=== PATIENT | male | born 1970 | race Caucasian/White ===

== ENCOUNTER 2021-12-03 21:14 | Inpatient (IN) | payer BC ==
[~2021-12-03] VITALS: Ht 188 cm; Wt 69.9 kg
[2021-12-03] MEDS ORDERED: MORPHINE SULFATE 4 MG/ML CPJ (NOT FOR IM USE) IV ONE (21:45)
[2021-12-03] MEDS ORDERED: ASPIRIN 81MG TABLET PO ONE (21:45)
[2021-12-03 22:16] LABS: BASOPHILS % 0.2 % (0.0-2.0); EOSINOPHILS % 0.2 % (0.0-5.0); HEMATOCRIT. 27.6 % (42.0-52.0); HEMOGLOBIN. 8.8 g/dL (14.0-18.0); LYMPHOCYTES % 10.4 % (20.0-50.0); MEAN CORPUSCULAR HEMOGLOBIN 26.2 pg (28.0-32.0); MEAN CORPUSCULAR VOLUME 82.2 fL (80.0-94.0); MEAN PLATELET VOLUME 6.7 fl (7.4-10.4); MONOCYTES % 8.3 % (2.0-8.0); NEUTROPHILS % 80.9 % (40.0-76.0); PLATELET 337 x1000/uL (130-400); RED BLOOD CELL COUNT 3.36 mill/uL (4.7-6.1); RED CELL DISTRIBUTION WIDTH 20.5 % (11.6-14.6)
[2021-12-03 22:20] LABS: CHLORIDE 98 mEq/L (98-107)
[2021-12-03] MEDS ORDERED: PIPERACILLIN/TAZOBACTAM 3.375GM/50ML PREMIX IV NR (22:30)
[2021-12-03] MEDS ORDERED: AZITHROMYCIN 500 MG in DEXT 5% WATER 250 ML IV SCH (22:30)
[2021-12-03] MEDS ORDERED: VANCOMYCIN 1G PREMIX 200 ML IV SCH (22:30)
[2021-12-03 22:33] LABS: CLARITY URINE CLEAR (CLEAR); COLOR URINE YELLOW (YELLOW); KETONES URINE NEGATIVE (NEGATIVE); LEUKOCYTE ESTERASE URINE NEGATIVE (NEGATIVE); NITRITE URINE NEGATIVE (NEGATIVE); OCCULT BLOOD URINE 1+ (NEGATIVE); PH URINE 6.5 (4.5-8.0); PROTEIN URINE TRACE (NEGATIVE); SPECIFIC GRAVITY URINE 1.021 (1.005-1.030); UROBILINOGEN URINE 0.2 E.U./dL (0.2-1.0)
[2021-12-04] VITALS (7 sets, daily range): BP systolic 87–115; BP diastolic 35–70
[2021-12-04] MEDS ORDERED: SODIUM CHLORIDE 0.9% 1000ML BAG (SEPSIS BOLUS) IV ONE
[2021-12-04] MEDS ORDERED: MORPHINE SULFATE 4 MG/ML CPJ (NOT FOR IM USE) IV ONE (02:45)
[2021-12-04] MEDS ORDERED: FUROSEMIDE 100MG/10ML VIAL IVP NR (03:15)
[2021-12-04] MEDS ORDERED: DIPHENHYDRAMINE 50MG/ML VIAL IV PRN (09:45)
[2021-12-04] MEDS ORDERED: ONDANSETRON HCL 4MG/2ML INJ IV PRN (09:45)
[2021-12-04] MEDS ORDERED: IPRATROPIUM/ALBUTEROL 0.5-3(2.5)MG/3ML NEB HHN PRN (09:45)
[2021-12-04] MEDS ORDERED: CLONIDINE 0.1MG TABLET PO PRN (09:45)
[2021-12-04] MEDS ORDERED: ACETAMINOPHEN 325MG TABLET PO PRN (09:45)
[2021-12-04] MEDS ORDERED: NALOXONE HCL 0.4MG/ML VIAL IV PRN (09:45)
[2021-12-04 09:58] LABS: BG BASE EXCESS 1.6 mmol/L (-2.0-2.0); BG CARBOXYHEMOGLOBIN 0.3 % (0.5-1.5); BG DEOXYHEMOGLOBIN 2.7 % (0.0-5.0); BG FRACTION INSPIRED OXYGEN 70; BG HCO3 ACT 24.7 mmol/L (22.0-26.0); BG METHEMOGLOBIN 0.4 % (0.0-1.5); BG OXYGEN SATURATION 97.3 % (92.0-98.5); BG OXYHEMOGLOBIN 96.6 % (94.0-97.0); BG PCO2 32.8 mmHg (35.0-45.0); BG PH 7.495 (7.350-7.450); BG PO2 97.7 mmHg (75.0-100.0); BG SAMPLE SITE RIGHT RADIAL; BG TOTAL HEMOGLOBIN 8.7 g/dL (12.0-18.0); BG VENT MODE MASK - BIPAP
[2021-12-04] MEDS ORDERED: CEFTRIAXONE 1 G PREMIX 50 ML IV NR (10:00)
[2021-12-04] MEDS: MORPHINE SULFATE 2 MG/ML CPJ (NOT FOR IM USE) IV PRN ×3 (11:35→23:01)
[2021-12-04] MEDS ORDERED: AZITHROMYCIN 500 MG in DEXT 5% WATER 250 ML IV SCH (15:30)
[2021-12-04 17:04] LABS: BG BASE EXCESS 1.8 mmol/L (-2.0-2.0); BG CARBOXYHEMOGLOBIN 0.3 % (0.5-1.5); BG DEOXYHEMOGLOBIN 1.2 % (0.0-5.0); BG FRACTION INSPIRED OXYGEN 70; BG HCO3 ACT 25.6 mmol/L (22.0-26.0); BG METHEMOGLOBIN 0.3 % (0.0-1.5); BG OXYGEN SATURATION 98.8 % (92.0-98.5); BG OXYHEMOGLOBIN 98.2 % (94.0-97.0); BG PCO2 36.7 mmHg (35.0-45.0); BG PH 7.462 (7.350-7.450); BG PO2 145.2 mmHg (75.0-100.0); BG SAMPLE SITE RIGHT RADIAL; BG TOTAL HEMOGLOBIN 8.3 g/dL (12.0-18.0); BG VENT MODE MASK - BIPAP
[2021-12-04] MEDS ORDERED: APIX2.5T PO (19:19)
[2021-12-04] MEDS ORDERED: TERA1CAP54 PO (19:19)
[2021-12-04] MEDS ORDERED: PRED10TA (19:19)
[2021-12-04] MEDS ORDERED: GABA-532 PO (19:19)
[2021-12-04] MEDS ORDERED: LEVO50TA8 PO (19:19)
[2021-12-04] MEDS ORDERED: METH-773 PO (19:19)
[2021-12-04] MEDS ORDERED: LOVA20TA2 PO (19:19)
[2021-12-04] MEDS ORDERED: HYDR-4009 PO (19:19)
[2021-12-04] MEDS ORDERED: AMLO5TAB88 PO (19:19)
[2021-12-04] MEDS ORDERED: MSCON15 PO (19:19)
[2021-12-04] MEDS ORDERED: IPRA3AMP9 NEB (19:19)
[2021-12-04] MEDS: ALBUTEROL (0.083%) 2.5MG/3ML NEB HHN SCH (20:23)
[2021-12-04] MEDS: AZITHROMYCIN 500 MG in DEXT 5% WATER 250 ML IV SCH (20:57)
[2021-12-05] VITALS (12 sets, daily range): BP systolic 88–108; BP diastolic 50–69
[2021-12-05] MEDS: ALBUTEROL (0.083%) 2.5MG/3ML NEB HHN SCH ×4 (01:05→20:51)
[2021-12-05] MEDS: HYDROCODONE/ACETAMINOPHEN 5/325MG TABLET PO PRN ×4 (01:43→20:58)
[2021-12-05 07:13] LABS: HEMATOCRIT. 22.1 % (42.0-52.0); HEMOGLOBIN. 7.4 g/dL (14.0-18.0); MEAN CORPUSCULAR HEMOGLOBIN 27.3 pg (28.0-32.0); MEAN CORPUSCULAR VOLUME 81.9 fL (80.0-94.0); MEAN PLATELET VOLUME 6.9 fl (7.4-10.4); PLATELET 293 x1000/uL (130-400); RED CELL DISTRIBUTION WIDTH 20.6 % (11.6-14.6)
[2021-12-05 07:21] LABS: CHLORIDE 98 mEq/L (98-107)
[2021-12-05] MEDS ORDERED: BISACODYL 10MG SUPP PR NR (08:15)
[2021-12-05] MEDS ORDERED: CEFTRIAXONE 1,000 MG in DEXTROSE 5% WATER 50 ML IV SCH ×2 (09:00→16:00)
[2021-12-05] MEDS ORDERED: FUROSEMIDE 40MG/4ML VIAL IV SCH (09:00)
[2021-12-05] MEDS: PANTOPRAZOLE 40MG DR TABLET PO SCH (10:18)
[2021-12-05] MEDS: LEVOTHYROXINE SODIUM 50MCG TABLET PO SCH (10:18)
[2021-12-05] MEDS: PREDNISONE 10MG TABLET PO SCH (13:50)
[2021-12-05] MEDS: METHOCARBAMOL 500MG TABLET PO PRN (13:50)
[2021-12-05] MEDS: GABAPENTIN 300MG CAPSULE PO SCH ×2 (13:50→18:03)
[2021-12-05] MEDS: TERAZOSIN HCL 1MG CAPSULE PO SCH (13:50)
[2021-12-05] MEDS: MORPHINE SULFATE 2 MG/ML CPJ (NOT FOR IM USE) IV PRN (16:18)
[2021-12-05] MEDS ORDERED: TERA1CAP53 PO (20:32)
[2021-12-05] MEDS ORDERED: AMLO5TAB88 PO (20:51)
[2021-12-05] MEDS ORDERED: LEVO50TA PO (20:51)
[2021-12-05] MEDS: AZITHROMYCIN 500 MG in DEXT 5% WATER 250 ML IV SCH (21:09)
[2021-12-05] MEDS: ATORVASTATIN CALCIUM 40MG TABLET PO SCH (21:09)
[2021-12-06] VITALS (12 sets, daily range): BP systolic 89–113; BP diastolic 44–59
[2021-12-06] MEDS: ALBUTEROL (0.083%) 2.5MG/3ML NEB HHN SCH ×4 (00:51→19:57)
[2021-12-06] MEDS: MORPHINE SULFATE 2 MG/ML CPJ (NOT FOR IM USE) IV PRN ×2 (02:55→13:04)
[2021-12-06 06:03] LABS: CHLORIDE 100 mEq/L (98-107)
[2021-12-06 06:20] LABS: HEMATOCRIT. 22.2 % (42.0-52.0); HEMOGLOBIN. 7.3 g/dL (14.0-18.0); MEAN CORPUSCULAR HEMOGLOBIN 26.8 pg (28.0-32.0); MEAN CORPUSCULAR VOLUME 81.4 fL (80.0-94.0); MEAN PLATELET VOLUME 7.2 fl (7.4-10.4); PLATELET 319 x1000/uL (130-400); RED BLOOD CELL COUNT 2.72 mill/uL (4.7-6.1); RED CELL DISTRIBUTION WIDTH 20.5 % (11.6-14.6)
[2021-12-06] MEDS: HYDROCODONE/ACETAMINOPHEN 5/325MG TABLET PO PRN ×3 (07:51→20:50)
[2021-12-06 08:51] LABS: BG BASE EXCESS 0.3 mmol/L (-2.0-2.0); BG CARBOXYHEMOGLOBIN 0.3 % (0.5-1.5); BG DEOXYHEMOGLOBIN 5.4 % (0.0-5.0); BG FRACTION INSPIRED OXYGEN 70; BG HCO3 ACT 23.5 mmol/L (22.0-26.0); BG METHEMOGLOBIN 0.2 % (0.0-1.5); BG OXYGEN SATURATION 94.6 % (92.0-98.5); BG OXYHEMOGLOBIN 94.1 % (94.0-97.0); BG PCO2 31.5 mmHg (35.0-45.0); BG PO2 73.6 mmHg (75.0-100.0); BG SAMPLE SITE RIGHT RADIAL; BG TOTAL HEMOGLOBIN 7.7 g/dL (12.0-18.0); BG VENT MODE HIGH FLOW
[2021-12-06] MEDS: TERAZOSIN HCL 1MG CAPSULE PO SCH (09:00)
[2021-12-06] MEDS: LEVOTHYROXINE SODIUM 50MCG TABLET PO SCH (09:16)
[2021-12-06] MEDS: PANTOPRAZOLE 40MG DR TABLET PO SCH (09:16)
[2021-12-06] MEDS: GABAPENTIN 300MG CAPSULE PO SCH ×3 (09:16→17:47)
[2021-12-06] MEDS: PREDNISONE 10MG TABLET PO SCH (09:27)
[2021-12-06 13:53] LABS: PLATELET ESTIMATE NORMAL
[2021-12-06] MEDS: CEFTRIAXONE 1,000 MG in DEXTROSE 5% WATER 50 ML IV SCH (14:15)
[2021-12-06 19:48] LABS: PLATELET ESTIMATE NORMAL
[2021-12-06] MEDS: AZITHROMYCIN 500 MG in DEXT 5% WATER 250 ML IV SCH (20:41)
[2021-12-06] MEDS: ATORVASTATIN CALCIUM 40MG TABLET PO SCH (20:41)
[2021-12-07] VITALS: BP 108/52
[2021-12-07 02:00] VITALS: BP 112/62
[2021-12-07] MEDS: ALBUTEROL (0.083%) 2.5MG/3ML NEB HHN SCH ×3 (02:08→15:22)
[2021-12-07] MEDS ORDERED: LORAZEPAM 0.5MG TABLET PO PRN (03:15)
[2021-12-07] MEDS ORDERED: ZOLPIDEM TARTRATE 5MG TABLET PO PRN (03:15)
[2021-12-07 04:54] LABS: HEMATOCRIT. 22.8 % (42.0-52.0); HEMOGLOBIN. 7.3 g/dL (14.0-18.0); MEAN CORPUSCULAR HEMOGLOBIN 25.9 pg (28.0-32.0); MEAN CORPUSCULAR VOLUME 81.2 fL (80.0-94.0); MEAN PLATELET VOLUME 7.1 fl (7.4-10.4); PLATELET 358 x1000/uL (130-400); RED BLOOD CELL COUNT 2.81 mill/uL (4.7-6.1); RED CELL DISTRIBUTION WIDTH 20.2 % (11.6-14.6)
[2021-12-07 05:14] LABS: PLATELET ESTIMATE NORMAL
[2021-12-07 05:28] LABS: CHLORIDE 104 mEq/L (98-107)
[2021-12-07] MEDS: METHOCARBAMOL 500MG TABLET PO PRN (06:44)
[2021-12-07] MEDS: HYDROCODONE/ACETAMINOPHEN 5/325MG TABLET PO PRN (06:45)
[2021-12-07 08:00] VITALS: BP 116/73
[2021-12-07] MEDS ORDERED: LORAZEPAM 1MG TABLET PO PRN (08:30)
[2021-12-07] MEDS ORDERED: NALOXONE HCL 0.4 MG/ML 1ML VIAL IV PRN (08:30)
[2021-12-07] MEDS: PREDNISONE 10MG TABLET PO SCH (08:56)
[2021-12-07] MEDS: GABAPENTIN 300MG CAPSULE PO SCH ×2 (08:57→14:10)
[2021-12-07] MEDS ORDERED: MORPHINE SULFATE 15MG TABLET SR PO SCH (09:00)
[2021-12-07] MEDS: TERAZOSIN HCL 1MG CAPSULE PO SCH (09:01)
[2021-12-07] MEDS: LEVOTHYROXINE SODIUM 50MCG TABLET PO SCH (09:03)
[2021-12-07] MEDS: PANTOPRAZOLE 40MG DR TABLET PO SCH (09:07)
[2021-12-07 12:00] VITALS: BP 105/50
[2021-12-07] MEDS ORDERED: HYDROCODONE/ACETAMINOPHEN 5/325MG TABLET PO PRN (12:15)
[2021-12-07] MEDS: CEFTRIAXONE 1,000 MG in DEXTROSE 5% WATER 50 ML IV SCH (14:10)
[2021-12-07 15:57] VITALS: BP 114/55
[2021-12-07 16:57] VITALS: BP 110/53
== END 2021-12-07 17:15 | disposition short-term general hospital (02) | DRG 871 ==
LOC: ER 21:14 → MICUSO 12-04 03:15 → 5EST 12-04 16:15
PROVIDERS: ADMIT Internal Medicine; ATTEND Internal Medicine
PROC: 5A09357 Assistance with Respiratory Ventilation, Less than 24 Consecutive Hours, Continuous Positive Airway Pressure (ICD-10-PCS; principal; 2021-12-04)
DX: A41.9 Sepsis, unspecified organism (principal); E43 Unspecified severe protein-calorie malnutrition; I26.99 Other pulmonary embolism without acute cor pulmonale; J18.9 Pneumonia, unspecified organism; J96.21 Acute and chronic respiratory failure with hypoxia; C78.00 Secondary malignant neoplasm of unspecified lung; C79.51 Secondary malignant neoplasm of bone; D68.59 Other primary thrombophilia; E87.2 Acidosis; E87.3 Alkalosis; E87.4 Mixed disorder of acid-base balance; R04.2 Hemoptysis; I50.32 Chronic diastolic (congestive) heart failure; Z68.1 Body mass index [BMI] 19.9 or less, adult; R65.20 Severe sepsis without septic shock; D64.9 Anemia, unspecified; Z96.641 Presence of right artificial hip joint; R74.01 Elevation of levels of liver transaminase levels; Z86.718 Personal history of other venous thrombosis and embolism; Z99.81 Dependence on supplemental oxygen; Z90.5 Acquired absence of kidney; Z85.528 Personal history of other malignant neoplasm of kidney; Z95.828 Presence of other vascular implants and grafts; Z88.8 Allergy status to other drugs, medicaments and biological substances
CPT/HCPCS: 36415; 36600; 71045; 78580; 80048; 80053; 81003; 82375; 82805; 82962; 83605; 83880; 84145; 84484; 85025; 87426; 87804; 93005; 93306; 93970; 94640; 94660; 99285; C9803; J0456; J0696; J1200; J1940; J2270; J2543; J3370; J7060; J7512